=== PATIENT | male | born 1980 | race Caucasian/White ===

== ENCOUNTER 2016-09-07 18:10 | Emergency (ER) | payer MEDICAID ==
[~2016-09-07] VITALS: Ht 180.3 cm; Wt 108.9 kg
[2016-09-07] MEDS ORDERED: IBU800 MG PO (18:37)
== END 2016-09-07 18:43 | disposition home or self-care (01) ==
LOC: ED 18:10
DX: S93.402A Sprain of unspecified ligament of left ankle, initial encounter (principal); F17.200 Nicotine dependence, unspecified, uncomplicated; Z90.49 Acquired absence of other specified parts of digestive tract; X50.9XXA Other and unspecified overexertion or strenuous movements or postures, initial encounter; Y93.89 Activity, other specified; Y92.9 Unspecified place or not applicable; Y99.9 Unspecified external cause status

== ENCOUNTER 2017-01-05 19:57 | Inpatient (IN) | payer OTHER ==
[~2017-01-05] VITALS: Ht 177.8 cm; Wt 108.5 kg
--- NOTE | ~2017-01-05 | PR ---
[place], [place] PROGRESS NOTE NAME: BERNA CORONA [facility] #: [id number] UNIT #: [id number] ROOM: [facility] DOCTOR: DAMIEN HARRISON MD,PAU BIRTHDATE: [birth year] DOS: 01/09/2017 SUBJECTIVE: The patient remains on the mechanical ventilator. He has a bronchoscopy performed yesterday with BAL specimen was obtained. The patient has been noted without any symptoms of acute hemodynamic instability at the present time. The patient required very large amount of sedation for the comfort, since noted agitated, getting off the bed with use of the Diprivan maximum dose of 50 mcg/kg/min and also started getting Versed 5 mg q. hour. However, the patient was given actual Versed every 30 minutes at least 8 doses prior to making any changes to 5 mg every 1 hour. Even then, the patient was still noted with agitated at times. We have started on the Haldol 5 mg q. hour resulting in good sedation at this time. The patient has not been noted any acute hemodynamic instability. There were no signs of tachycardia or hypotension. Tachycardia, which had been noted previously improved. Progressive improvement in oxygenation was noted as well. He has not been noted with any difficulty with the feeding, which has been continued with NG tube started yesterday. OBJECTIVE: VITAL SIGNS: The patient remains afebrile, respiratory rate between 20-22, heart rate 60-69 blood pressure 129/76 143/89. Intake for the patient is 3.860 mL and output 2300 mL. The pulse oxygen saturation noted on 60% oxygen as 96% saturation at the bedside this morning of assessment. HEAD AND NECK: The patient remained intubated. NECK: Supple. Head was atraumatic. CARDIOVASCULAR: S1, S2 is audible. LUNGS: Noted with [id number] decreased breath sounds. There were no wheezing or crackles. ABDOMEN: Soft, nontender, bowel sounds present. EXTREMITIES: The patient was noted without any edema, clubbing or cyanosis. LABORATORY DATA: CMP this morning, glucose 137, BUN 16, creatinine was normal. Albumin 2.9. Remaining labs for this patient was noted essentially normal. Prealbumin was pending. Arterial blood gas of pH of 7.40, pCO2 of 45, pO2 145, 60% oxygen assist control mode, tidal volume of 500 cc, PEEP of 15. Another arterial blood gas repeated later on to confirm the pO2 shows pO2 of 266, pH 7.41, pCO2 of 42.7. The differential was available shows a wbcs of total of 1230 with a predominance cells was noted at 60%, which is neutrophils. The lymphocytes were noted at 7%, eosinophils 1% macrophages 27%, ____ of 5%. Chest x-ray that was done this morning shows significant reduction and improvement in the aeration of the lung. HIV attached was noted nonreactive, which has been tested for generation testing. The Gram stain of the bronchial washing was pending at this time. Preliminary culture was noted as no bacterial growth. Fungal stain was also noted pending. The pneumocystis testing was pending, but most likely will be less likely because negative HIV status. IMPRESSION: 1. The patient who has been currently noted with acute bilateral pulmonary infiltration, currently would be considered strongly for the diagnosis of acute pneumonia with etiology, currently not determined. Fluid overload would be also [place], [place] PROGRESS NOTE NAME: BERNA CORONA UNIT #: [id number] ROOM: [facility] DOCTOR: DAMIEN HARRISON MD,PAU BIRTHDATE: [birth year] considered with some cardiac component making actually worse as well. 2. ARDS spectrum was also noted on the chest x-ray yesterday as well. 3. Mild hypoalbuminemia. 4. Mild anemia as well. 5. Acute pneumonia with acute interstitial pneumonitis, exact etiology cannot be determined possibility of viral illness superimposed fluid overload would be considered. Other etiologies, acute hypersensitivity, pneumonitis remains in consideration as well, but appeared to be less likely because of the current acute neutrophil in the BAL specimen. 6. Fluid overload was also considered. 7. Acute severe hypoxic respiratory failure with acute respiratory distress syndrome. PLAN OF TREATMENT: Oxygen supplementation has been decreased at this time, 40% oxygen close monitoring the pulse oxygen saturation, repeat arterial blood gas in the next 4-5 hours to reassess the oxygenation. After that gradual reduction of the PT will be started. Continue with the reduction of the sedation with IV Versed use and continue the Diprivan and Haldol p.r.n. Monitor respiratory status closely. Completely discontinue any further IV fluids administration. The patient was ordered for 60 mg of Lasix intravenously to achieve a negative fluid balance. The patient was noted positive fluid balance of 1.559 liters yesterday. The antibiotic de-escalation will be done based on the final culture results of the bronchial washings. Other supportive therapy, plan and management and care. Monitor all the culture results of the patient, which was sent. Other lab testing. Continue to maximize the nutrition support. Ventilator bundle management. DVT prophylaxis. Total time for the pulmonary critical care evaluation management was 39 minutes. PAU QUEZADA MD CM:PNTRANS [id number] PAU HARRISON MD 01/09/17 1409 interface
--- NOTE | ~2017-01-05 | PR ---
[place], [place] PROGRESS NOTE NAME: BERNA CORONA [facility] #: [id number] UNIT #: [id number] ROOM: [place] [address] DOCTOR: DAMIEN HARRISON MD,PAU BIRTHDATE: [birth year] DOS: 01/10/2017 SUBJECTIVE: The patient has been continued on the mechanical ventilator, required ____ amount of sedation. Adjustment of sedation has been done for the patient as needed. The oxygen supplementation has been decreased for this patient gradually. The patient's PEEP was also decreased gradually. As the PEEP was decreased ____ this morning from 10 to 8, the patient was noted with oxygen desaturation. The PEEP was increased to 10 cm water again. His oxygen supplementation at this time was continued at 45% of oxygen. Low-grade fever was noted, otherwise the patient remains afebrile. Feeding was well tolerated by the patient. OBJECTIVE: VITAL SIGNS: For the patient, which has been recorded showed the temperature noted 99.9 degrees Fahrenheit, normal temperature, respiratory rate 18-20, heart rate 65-92, blood pressure 142/85-110/65. Pulse oxygen saturation was noted as 98%. HEENT: Showed no new change. NECK: Supple. The patient remains intubated. CARDIOVASCULAR: S1, S2 audible. LUNGS: The patient was noted without any crackles. Breaths are noted mildly decreased bilaterally. ABDOMEN: Soft, nontender. LABORATORY DATA: The culture of the BAL for the patient noted no bacterial growth. Arterial blood gas this morning, pH of 7.39, pCO2 of 53, pO2 of 55, 40% oxygen, PEEP of 8, tidal volume of 500 mL. Chest x-ray this morning does not show any new acute changes as compared to previous chest x-ray of yesterday. Vancomycin trough level yesterday noted 17.9. The BMP noted normal BUN and creatinine. CBC: WBC count 11,000, hemoglobin 13.2, hematocrit 39.1, platelet count was noted as normal. IMPRESSION: 1. Acute interstitial pneumonitis with severe acute hypoxic respiratory failure, still requiring mechanical ventilation with high PEEP, but decreased from 15 to 10 gradually in the last 24 hours. 2. BAL specimen noted no bacterial growth at the present time, but the differential of the BAL was suggestive of acute infection etiology, which has been treated. HIV tested and noted negative. Superimposed acute noninfectious etiology remains in consideration, currently treated with corticosteroids as well. 3. The patient with a high dose of requirement for sedation still needed. 4. Mild azotemia related to corticosteroids with elevation of BUN 24. 5. Mild hypertriglyceridemia related to the use of the Diprivan as the triglyceride levels were noted as 203. 6. Mild protein-calorie malnutrition status as well. PLAN OF TREATMENT: Discontinuation of the antibiotic with de-escalation has been ordered. The patient will be getting only Rocephin 2 gram IV daily. Vancomycin, Zithromax were discontinued. The Solu-Medrol dose has been changed [place], [place] PROGRESS NOTE NAME: BERNA CORONA UNIT #: [id number] ROOM: [place] [address] DOCTOR: DAMIEN HARRISON MD,PAU BIRTHDATE: [birth year] 60 mg q.8 hours to 40 mg b.i.d. The patient was started on IV Ativan by the primary care attending 1 mg an hour that will be continued at this time. The PEEP has been changed from 8-10 again resulting in improvement in the oxygen saturation. Repeat arterial blood gases in the morning. Another dose of Lasix 40 mg will be given today as well. Supportive care. Keep the patient to the negative balance. Still noted positive fluid balance as well. Additional treatment changes to be done based on the progression of the illness. PAU QUEZADA MD CM:PNTRANS [id number] PAU HARRISON MD 01/11/17 0031 interface
--- NOTE | ~2017-01-05 | PR ---
[place], [place] PROGRESS NOTE NAME: BERNA CORONA [facility] #: [id number] UNIT #: [id number] ROOM: [place] [address] DOCTOR: DAMIEN HARRISON MD,PAU BIRTHDATE: [birth year] DOS: 01/11/2017 SUBJECTIVE: The patient has been noted with some difficulty with endotracheal tube. The nurses and the respiratory therapist reported the patient cough has broken, inability to keep the pressure in the endotracheal tube, and the endotracheal tube has been changed by the anesthesia this morning without difficulty. The chest x-ray which was done subsequently, two of those, the patient still described the tip of the endotracheal tube could not be identified in any of those x-rays. As assessed the patient this morning for the patient, he has been still getting tidal volume as ordered for this patient. The oxygen saturation noted normal; however, the patient was suspected with air leak around the tracheostomy intermittently. He has been noted without any hemodynamic instability. He was noted with a rectal temperature elevation as low grade; otherwise, normal temperature was identified. OBJECTIVE: VITAL SIGNS: The temperature of the patient is normal orally and rectal 100.2 degrees Fahrenheit, respiratory rate of 18-20, heart rate of 82-100, blood pressure 138/72-107/75. Intake for the patient is 2400 mL and output 2800 mL. The pulse oxygen saturation 45% oxygen with 96% saturation recorded. HEENT: Examination shows no new change. NECK: Supple. CARDIOVASCULAR: S1, S2 audible. LUNGS: Noted moderate decreased breath sounds without any crackles. ABDOMEN: Soft, nontender, bowel sounds present. EXTREMITIES: Shows no edema. LABORATORY DATA: The patient's arterial blood gas today, pH of 7.44, pCO2 53.8, pO2 of 103. Another arterial blood gas repeated later shows pH of 7.42, pCO2 of 52, pO2 of 81 and 45% of oxygen. Blood culture from the showed no bacterial growth. Chest x-ray of the patient from the PACS images, both of them were reviewed with the patient, shows NG tube were noted in the stomach. Small hazy infiltration noted in the lungs. The tip of the endotracheal tube could not be seen. The CBC today was noted, WBC count normal, hemoglobin 13.4, hematocrit 40.1, platelet count for the patient was noted as normal. The pneumocystis stain for the patient was noted as negative. Acid fast bacillus of the BAL specimen was noted negative as well. IMPRESSION: The patient with most likely incompletely inserted endotracheal tube was noted at this time, which has been fixed personally for the patient with bedside bronchoscopy. The endotracheal tube were noted about 8-9 cm above the latrice level, barely entering the upper part of the trachea. Endotracheal tube was adjusted at 4 cm above the latrice level. Endotracheal tube was secured. PLAN OF TREATMENT: Continuation of the bronchodilator for the patient at this time. No further chest x-ray will be needed since the endotracheal tube confirmation has been done visually with the direct visualization with the bronchoscope. Reduce the PEEP to 8 cm water. Continue current oxygen supplementation. Continue current dose of corticosteroids and antibiotics as [place], [place] PROGRESS NOTE NAME: BERNA CORONA UNIT #: [id number] ROOM: [place] [address] DOCTOR: PAU ÁLVAREZ MD BIRTHDATE: [birth year] previously. Usual care, other supportive therapy, plan of management care to keep the patient towards a negative fluid balance. Additional labs for the patient will be ordered this morning as well. Sedation to be continued at this time with reduction of sedation to be started in the morning in preparation for possibility of readiness to get the assessment for liberation from mechanical ventilator. Assessment and management has been discussed with the patient's fiance in detail as well. Total time pulmonary critical care evaluation and management 45 minutes. PAU QUEZADA MD CM:PNTRANS [id number] PAU HARRISON MD 01/12/17 0054 interface
--- NOTE | ~2017-01-05 | PR ---
[place], [place] PROGRESS NOTE NAME: BERNA CORONA [facility] #: [id number] UNIT #: [id number] ROOM: [place] [address] DOCTOR: DAMIEN HARRISON MD,PAU BIRTHDATE: [birth year] DOS: 01/13/2017 SUBJECTIVE: He has been noted on mechanical ventilator, intubated. The Ativan taper for the patient has been gradually decreased and completely stopped for this patient in the last 24 hours. Currently, the patient getting intravenous Diprivan 40 mcg/kg/minute. The IV Haldol for the patient was also noted available. The patient has been currently effectively sedated with the current combination of medications. He has been noted mild tachycardia. The rectal temperature of the patient was noted at 102 degrees Fahrenheit by the oral temperature noted as completely normal. He has not been noted any distress at this time. The feeding has been tolerated from the orogastric tube. OBJECTIVE: VITAL SIGNS: Temperature 102 degrees Fahrenheit, normal temperature, respiratory rate of 21-22, heart rate 107-116, blood pressure 146/92-137/194. The pulse oxygen saturation on 50% oxygen 94% saturation. HEENT: Examination shows head was atraumatic. Eyes nonicterus. NECK: Supple. CARDIOVASCULAR: S1, S2 is audible. LUNGS: The patient was noted without any wheezing or crackles at the present time. ABDOMEN: Noted soft. Mild obesity. EXTREMITIES: Noted mild edema. LABORATORY DATA: The patient's CMP this morning, BUN 41, creatinine normal, glucose 118, CO2 of 36. CBC of the patient of 01/13/2017, WBC count 14,000, remaining CBC completely normal. Arterial blood gas pH of 7.42, pCO2 55.4. pO2 125, 50% oxygen with PEEP of 7.0, assist control, volume control, mechanical ventilation. Chest x-ray this morning noted. Endotracheal tube were noted well positioned without any evidence of acute pulmonary infiltration or other abnormalities. NG tube was noted in place. IMPRESSION: 1. The patient has been noted with current acute respiratory failure secondary to acute viral pneumonia for this patient, parainfluenza infection. Isolation. Adenovirus was also noted from the nasopharyngeal secretions. 2. Interstitial edema for the patient was also noted to be improving at the present time. 3. Chronic mild obesity. 4. Azotemia secondary to corticosteroid use and the diuretics as well. 5. Metabolic combination from the steroids and the diuretics as well. PLAN OF MANAGEMENT: Sedation has been completely turned off for this patient at the present time. Monitor respiratory status closely. Once the patient noted to be awake and alert. He will be started on CPAP of 5, pressure support of 10, mechanical ventilation at that time. Monitoring to be continued for 2 hours for the patient with close monitoring of his vital signs and the respiratory status, if tolerated. Arterial blood gas will be done for the patient to assess the arterial blood gas, the patient after that. Liberate from patient's mechanical ventilation for this patient based on the assessment later with arterial blood [place], [place] PROGRESS NOTE NAME: BERNA CORONA UNIT #: [id number] ROOM: [place] [address] DOCTOR: PAU ÁLVAREZ MD BIRTHDATE: [birth year] gas and clinical assessment. In the meantime, continue the other palliative care for the patient and supportive care therapy, plan of management, and usual treatment and other therapies. The assessment and management has been discussed with the patient's fiance and other family members at the bedside. The assessment and management was discussed the primary care attending of this patient as well. Pulmonary critical care evaluation and management for the patient today was 35 minutes. PAU QUEZADA MD CM:PNTRANS [id number] PAU HARRISON MD 01/14/17 0052 interface
--- NOTE | ~2017-01-05 | PR ---
[place], [place] PROGRESS NOTE NAME: BERNA CORONA [facility] #: [id number] UNIT #: [id number] ROOM: [place] [address] DOCTOR: DAMIEN HARRISON MD,PAU BIRTHDATE: [birth year] DOS: 01/14/2017 PULMONARY FOLLOWUP SUBJECTIVE: The patient was seen today and was noted with self extubation yesterday as sedation will decrease and the patient was noted excessive cough. The endotracheal tube was dislodged. After that, the patient was noted onetime projectile vomiting without any signs of aspiration. He has been noted with significant agitated behavior and findings of delirium as well. The delirium has been treated with use of the Haldol with several doses of Haldol administered yesterday, it has resulted in reduction and improvement on the delirium; however, the complete resolution was still not noted. The patient has not been given any benzodiazepine, especially the Ativan that may have partly contributed to the development of the delirium. He was continued on antiviral therapy with a Tamiflu as well. He has been kept relatively n.p.o. because of change in mental status to prevent any aspiration. He has not been noted further GI problems at the present time. OBJECTIVE: VITAL SIGNS: The temperature noted as normal. The respiratory rate recorded at 15-29, heart rate of 105 with mild sinus tachycardia, blood pressure 135/85-133/79. Intake 1200, output 1150 mL. Pulse oxygen saturation with oxygen supplementation that has been used by the patient was noted as 95-98% saturation with the nasal cannula and Venturi mask. HEENT: Currently, the patient has been extubated. The orogastric tube has been removed. NECK: Supple. CARDIOVASCULAR: S1, S2 audible. LUNGS: The patient was noted with moderate reduction. There was no wheezing or crackles. ABDOMEN: Soft, nontender. EXTREMITIES: Shows no edema. LABORATORY DATA: The patient's CMP today, BUN 31, creatinine was normal, glucose was normal. Potassium 3.0. CBC this morning, WBC count 14.6, hemoglobin and hematocrit normal with relatively normal differentials. Arterial blood gas that was done yesterday ____ self-extubated himself at 50% oxygen, pH of 7.49, pCO2 of 46, pO2 of 70-50% Venturi mask. IMPRESSION: 1. The patient has been currently noted with acute delirium in Intensive Care Unit, multifactorial, resolving and improving gradually. 2. The patient with acute hypoxic respiratory failure, resolving. 3. Acute viral infection parainfluenza infection and adenovirus as well with interstitial pneumonia as well. 4. The patient with mild azotemia and hyperkalemia related to diuretics and other etiology. PLAN OF TREATMENT: Continuation of the Haldol for the patient. The patient was given some clear liquids this morning, which has been tolerated and they will be [place], [place] PROGRESS NOTE NAME: BERNA CORONA UNIT #: [id number] ROOM: [place] [address] DOCTOR: DAMIEN HARRISON MD,PAU BIRTHDATE: [birth year] continued. Continue the Tamiflu as well as ordered. Other supportive therapy, plan of management as well. Starting the patient on clear liquid diet once the patient would be noted much more awake and then transition to his normal diet. Other supportive plan of management and care plan. Other additional treatment changes to be made based on the progression of the illness. PAU QUEZADA MD CM:JOSEFA [id number] PAU HARRISON MD 01/14/17 1255 interface
--- NOTE | ~2017-01-05 | PR ---
[place], [place] PROGRESS NOTE [facility] [id number] UNIT #: [id number] ROOM: [place] [address] DOCTOR: MARSHALL GUNDERSON DO BIRTHDATE: [birth year] DOS: 01/11/2017 PROCEDURE: Endotracheal intubation. PROCEDURE IN DETAIL: This is a 36-year-old male currently admitted to the hospitalist service. He has been intubated. The nurses noted a ____ cough in the endotracheal tube today and requested assistance in re-intubating the patient. Rapid sequence intubation was performed using succinylcholine and propofol. A size 8 endotracheal tube was inserted in the trachea with direct visualization of the vocal cords. There were good breath sounds bilaterally. A chest x-ray has been ordered for tube confirmation. No complications during the procedure. MARSHALL GUNDERSON DO CM:JOSEFA [id number] MARSHALL GUNDERSON DO 01/11/17 0937 interface
--- NOTE | ~2017-01-05 | PR ---
[place], [place] PROGRESS NOTE NAME: BERNA CORONA [facility] #: [id number] UNIT #: [id number] ROOM: [facility] DOCTOR: DAMIEN HARRISON MD,PAU BIRTHDATE: [birth year] DOS: 01/08/2017 PULMONARY CRITICAL CARE EVALUATION AND MANAGEMENT SUBJECTIVE: The patient was seen and examined. He remains in the Intensive Care Unit. Plan for bronchoscopy done today. He remains on 100% oxygen supplementation with non-rebreather mask and intermittent use of the BiPAP. The patient's oxygen saturation recorded 88%. The patient is on 100% on non-rebreather mask. The bronchoscopy specimen for this patient was planned to be done today. The patient has been intubated successfully by the Anesthesia Department prior to the procedure completion. He has not been noted any symptoms of coughing or any acute hemodynamic instability for this patient except intermittent sinus tachycardia was noted with high heart rate of 114 beats per minute. Respiratory, the patient was still noted with tachypnea as well. OBJECTIVE: VITAL SIGNS: For the patient which has been recorded shows, temperature was recorded as normal, respiratory rate 26-32, heart rate of 97-114, blood pressure 144/89-127/81. Pulse oxygen saturation of the patient was noted with 80% BiPAP of 93%. Currently on the mechanical ventilation. The patient was started on assist control, volume control mechanical ventilation. The patient's saturation was noted as 98% saturation on 100% oxygen. The vital signs for the patient, which has been rather an intake and output for the patient in the last 24 hours. The intake for the patient was recorded as 3350 mL over 2850 mL. Positive for vent 500 mL. HEENT: The patient is currently intubated orally. NECK: Supple. Head was atraumatic. CARDIOVASCULAR: S1, S2 audible. LUNGS: Diffuse reduction in breath sounds with questionable crackles, no wheezing. ABDOMEN: Soft, flat, nontender, bowel sounds present. EXTREMITIES: Noted without any edema, clubbing or cyanosis. LABORATORY DATA: BMP of the patient done this morning shows sodium 138, remaining electrolytes were normal. Vancomycin trough level 19.5, which is therapeutic. There was no CBC done today. PT/PTT, which was done yesterday for the patient was noted normal. Platelet function assay was noted normal as well. Urine culture, no bacterial growth. No new chest x-ray was done today or any arterial blood gases. IMPRESSION: The patient who has been currently noted with acute ARDS with the patient bilateral pulmonary infiltration with varying differentials remain in consideration. With current adequate diuresis less likely the cause of this patient infiltration will be considered congestive heart failure; however, other alternative diagnosis. The patient continued to maintain concentration for different interstitial pneumonitis. PLAN OF TREATMENT: Proceed with the BAL specimen. Continue broad spectrum intravenous antibiotic including the additional coverage for the patient as in [place], [place] PROGRESS NOTE NAME: BERNA CORONA UNIT #: [id number] ROOM: [facility] DOCTOR: DAMIEN HARRISON MD,PAU BIRTHDATE: [birth year] progress. Supportive plan of management, therapy, and care. Ventilator bundle management. The patient has been initiated. Continue DVT prophylaxis. Sedation with IV Diprivan and use of the Versed as needed. Other supportive plan of therapy, care, and management. Usual treatment, all other supportive care and therapies. Additional treatment to be made changes rather for the patient based on progression of the illness. Assessment and management has been discussed with the patient's fiancee and other family members today as well. Total time for pulmonary critical care evaluation and management was 38 minutes. PAU QUEZADA MD CM:PNTRANS [id number] PAU HARRISON MD 01/09/17 0018 interface
--- NOTE | ~2017-01-05 | EKG ---
[place], [place] ELECTROCARDIOGRAM REPORT NAME: BERNA CORONA UNIT #: [id number] ROOM: [facility] DOCTOR: DAMIEN HARRISON MD,PAU BIRTHDATE: [birth year] DOS: 01/07/2017 ELECTROCARDIOGRAM REPORT FINDINGS: The rhythm was noted with sinus rhythm with mild sinus tachycardia with a heart rate of 102 beats per minute. The electrocardiogram for the patient shows the criteria met for LVH. There were no changes of acute ischemia. Prolongation of the QTc interval was also noted. PAU QUEZADA MD CM:EKGRPT:ELECTROCARDIOGRAM REPORT [id number] PAU HARRISON MD
--- NOTE | ~2017-01-05 | CON ---
[place], [place] REPORT OF CONSULTATION NAME: BERNA CORONA [facility] #: [id number] UNIT #: [id number] ROOM: [facility] DOCTOR: PAU ÁLVAREZ MD BIRTHDATE: [birth year] DOS: 01/07/2017 CONSULTATION REQUESTED BY: Hospitalist services for the assessment of bilateral pulmonary infiltration with acute severe hypoxemic respiratory failure. HISTORY OF PRESENT ILLNESS: This is a 36-year-old white male who has been noted acutely ill for the past 2-3 weeks. He had been seen by the primary care physician as an outpatient, was diagnosed with symptoms of bronchitis and treated with antibiotic without any response. The patient reported symptoms of having a progressive increased shortness of breath where the coughing continued without any sputum expectoration as well. He was denying any symptoms of chest pain. Denies any symptoms of hemoptysis. The patient has a chest x-ray which was done in the Emergency on admission of 01/05/2017 shows bilateral pulmonary infiltration. The followup chest x-ray suggestive were noted significant worsening. He had a CT scan of the chest done as well that shows evidence of progressive bilateral pulmonary infiltration. Currently, the patient has been noted on the BiPAP with a setting of 12/8 with 80% oxygen. The oxygen saturation at the bedside was noted as 92%. His respiratory rate was noted 38-40. The patient was given intravenous fluids as the patient was admitted to the hospital because of elevation of lactic acids on 01/05/2017. He was given one dose of IV Lasix last night with about 2300 mL of urinary output was recorded after that. REVIEW OF SYSTEMS: CONSTITUTIONAL SYMPTOM: He does complain of flu-like symptoms at the time of getting acutely ill. He denies symptoms of fever or chills. Complaining of fatigue and malaise. EYES: Denies any burning, redness or tenderness or discharge or dryness. EARS, NOSE, THROAT SYMPTOMS: Denies sore throat, hoarseness, otalgia, postnasal drainage or epistaxis. CARDIOVASCULAR: Denies anginal pain, edema or pain of the lower extremities. The patient does report some edema and swelling in the past as per patient's fiancee. GASTROINTESTINAL: Denies dysphagia, nausea, vomiting, diarrhea, abdominal pain, hematemesis, melena, hematochezia, dysphagia, or aspiration. Denies any abnormal weight loss history. GENITOURINARY: Denies dysuria, suprapubic pain, hematuria. MUSCULOSKELETAL: Denies acute joint pain, redness, or tenderness. SKIN: No lesions or rashes. CENTRAL NERVOUS SYSTEM: No dizziness, headache, diplopia, syncopal episodes. Remaining systems were reviewed with the patient, they were noted all negative. PAST MEDICAL HISTORY: Reported as: 1. History of essential hypertension. 2. Gastroesophageal reflux. 3. History of bronchial asthma. 4. Varicose veins of the lower extremities. 5. Obesity. PAST SURGICAL HISTORY: [place], [place] REPORT OF CONSULTATION NAME: BERNA CORONA UNIT #: [id number] ROOM: [facility] DOCTOR: DAMIEN HARRISON MD,PAU BIRTHDATE: [birth year] 1. Varicose vein surgery of the right lower extremity. 2. Cholecystectomy. SOCIAL HISTORY: The patient is currently . He has no children. He lives with a girlfriend. The patient has been working for 4 years in a [employer] with significant exposure to the [email or web address] as a job. Denies any recent outside travel or contact any person with the infection. Denies any exposure to chemical mold or anything in the home settings. FAMILY HISTORY: Both parents at the age of 5050 years old from complication of pneumonia and diabetes. HOME MEDICATIONS: Noted as use of Norvasc, Tessalon Perles, cetirizine, doxycycline, ibuprofen and Zantac. DRUG ALLERGIES: No known drug allergies. PHYSICAL EXAMINATION: GENERAL: This is a 36-year-old male who has been currently noted to be awake and alert with mild tachypnea on the BiPAP. VITAL SIGNS: The patient's height was recorded by the nursing staff on admission, height of 5 feet 10 inches, weight of 239 pounds, BMI of 34.0. VITAL SIGNS: Recorded as a normal temperature since admission only 99.6 degree Fahrenheit noted orally one time on 01/05/2017, otherwise the patient remains afebrile, respiratory rate range between 15-26, heart rate 81-114 with mild sinus tachycardia, and blood pressure 125/80-132/72. The pulse oxygen saturation noted as 91-92% saturation of 80% oxygen. Pulse oxygen saturation previously noted on 01/05/2017 of 97% saturation of oxygen. HEENT: Shows head was atraumatic. Eyes nonicterus. NECK: Supple. The neck was obese. CARDIOVASCULAR: S1, S2 audible. No added sounds. LUNGS: Noted with general reduction in the breath sounds without any wheezing, occasional faint crackles noted in the mid portion of the lungs. ABDOMEN: Soft, obese, nontender. Bowel sounds present. EXTREMITIES: Does not show any evidence of edema, clubbing or cyanosis. CENTRAL NERVOUS SYSTEM: Cranial nerves 2-12 intact. MUSCULOSKELETAL: No deformities. SKIN: No lesions or rashes. LABORATORY DATA: CBC that was done on 01/05/2017, WBC count 20.2, 82% segmented neutrophils, remaining CBC normal. BMP noted as normal BUN and creatinine. Urine drug toxicology was noted negative. Lactic acid 2.3 on admission, ____ are noted as normal at 0.9. Troponin of 3 sets on 01/06/2017 were normal. CBC on 01/06/2017, WBC count 16.7, hemoglobin 13.6, hematocrit 38.1, platelet count was normal. Ultrasound of the soft tissue, head and neck was reported as normal. Arterial blood gas pH of 7.46, pCO2 of 28, pO2 of 44 that was done yesterday. CMP was noted as glucose 143, BUN and creatinine was normal. Potassium 3.4, chloride 108. CBC on 01/06/2017 that was yesterday, WBC count was elevated to 26.4, hemoglobin 13, hematocrit 38.3, platelet count normal segmented neutrophils noted 91%. Another arterial blood gas yesterday pH of [place], [place] REPORT OF CONSULTATION NAME: BERNA CORONA UNIT #: [id number] ROOM: [facility] DOCTOR: DAMIEN HARRISON MD,[facility] BIRTHDATE: [birth year] 7.43, pCO2 of 30, pO2 of 67 on 15 L nasal cannula oxygen supplementation. CMP that was done this morning, glucose 151, BUN and creatinine normal. The potassium noted as 3.4. Bilirubin 1.6. CBC this morning, WBC count 24.1, hemoglobin and hematocrit remains the same, platelet count was normal, 90% segmented neutrophils. Blood cultures rather 01/05/2017 was normal. Arterial blood gas on the BiPAP this morning, 80% oxygen, pH of 7.43, pCO2 of 36, pO2 of 64.4. RADIOLOGY DATA: That was personally reviewed from the back images. The first chest x-ray that was done on 01/05/2017 was noted with scattered bilateral pulmonary infiltration. The chest x-ray that was done on 01/06/2017 noted with bilateral pulmonary infiltration. CT scan of the chest that was done 01/06/2017 showed evidence of diffuse ground-glass opacities for the patient noted in the lungs sparring the subpleural area with bronchovascular distribution. The involvement was not noted uniformly all of the lungs. Patchy areas of normal was noted in between. The disease were noted significantly involving the upper lungs and middle lobe and part of the lower lungs were also involved. IMPRESSION: 1. The patient has been noted severe acute hypoxemic respiratory failure with progression with a differential diagnosis as noncardiogenic pulmonary or cardiogenic pulmonary edema, acute pneumonia with atypical manifestation and acute interstitial pneumonitis. 2. Differential diagnosis is acute pneumocystis pneumonitis for these nonspecific interstitial pneumonia would be considered as acute or chronic infection. The other infection to be considered is pneumocystis infection at the present time. 3. Acute hypersensitivity pneumonitis was also remains in consideration; however, the pulmonary infiltration had progressed after the hospitalization was not noted that severe on admission. 4. Cryptogenic organizing pneumonia would be also considered in the differential diagnosis. 5. Acute eosinophilic pneumonia, the patient also remains in consideration. PLAN OF MANAGEMENT: Order IgE level and ESR. The patient has been already getting Solu-Medrol starting today 60 mg q.8 hour that will be continued. Covered the pneumonia with vancomycin, intravenous Rocephin 2 g daily and Zithromax. Ordered for urine legionella antigen. Potential intubation and mechanical ventilation have been discussed in detail with the patient and his fiance that might occur, as the patient's respiratory status, most likely could deteriorate initially prior to the improvement despite use of the BiPAP. The bronchoscopy with BAL specimen will be obtained tomorrow morning. This will help to exclude certain diseases. Bronchodilators p.r.n. use as well to help mobilize secretions. The patient does expectorate sputum that could be sent for culture. HIV testing would be indicated as well. Other supportive plan of management, addition of treatment changes to be made based on the progression of the illness. Assessment and management has been discussed with Dr. Yuridia Wang as well. One more dose of Lasix has been ordered and echocardiogram needs to be done to exclude any cardiac etiology. [place], [place] REPORT OF CONSULTATION NAME: BERNA CORONA UNIT #: [id number] ROOM: [facility] DOCTOR: DAMIEN HARRISON MD,PAU BIRTHDATE: [birth year] Pulmonary critical care management for today took 40 minutes. PAU QUEZADA MD CM:CONSTR:REPORT OF CONSULTATION 1154 01/07/17 1412 interface
--- NOTE | ~2017-01-05 | PROC NOTE ---
[place], [place] PROCEDURE NOTE [facility]ONA [id number] UNIT #: [id number] ROOM: [facility] DOCTOR: DAMIEN HARRISON MD,PAU BIRTHDATE: [birth year] DOS: 01/08/2017 PROCEDURE: Bronchoscopy with a BAL specimen. PREOPERATIVE DIAGNOSIS: Bilateral interstitial pneumonitis. POSTOPERATIVE DIAGNOSIS: Bilateral interstitial pneumonitis. COMPLICATIONS: None. PROCEDURE DESCRIPTION: Informed consent obtained from the patient and family member. The patient already intubated and getting mechanical ventilation. The procedure was performed in the Surgery Department for the patient in negative pressure room. The video fiberoptic bronchoscope advanced to the endotracheal tube lower part of trachea. The vocal cord not seen since the patient is already intubated. There were no secretions present in the trachea, right upper, right middle, right lower, left upper, left lingular lower lobe bronchi were all examined and noted patent without significant secretions. Based on the current CT scan assessment, the specimen was obtained from the right upper lobe for this patient as well as in the right lower lobe for the patient effectively without any difficulty. Transient hypoxia was noted. The patient with BAL specimen, which was treated by the withdrawal of the scope and continued the oxygenation. The BAL specimen was sent for cell count with differential. The pneumocystis stain was also ordered. The routine cultures including fungal cultures as well as the acid-fast smear and culture was ordered as well. The patient will be continued on the current mechanical ventilation setting and noted the pulse oxygen saturation as 98% for this patient. Post-completion of the procedure postoperative findings were discussed with the patient's family members. PAU QUEZADA MD CM:PROCNOTE:PROCEDURE NOTE [id number] PAU HARRISON MD
--- NOTE | ~2017-01-05 | PR ---
[place], [place] PROGRESS NOTE NAME: BERNA CORONA [facility] #: [id number] UNIT #: [id number] ROOM: [place] [address] DOCTOR: DAMIEN HARRISON MD,PAU BIRTHDATE: [birth year] DOS: 01/12/2017 SUBJECTIVE: The patient remains on the mechanical ventilator at this time, intubated, with adjustment of the endotracheal tube that was done ____ endoscopy. He was noted with tidal volume without any air leak. He has not been noted any changes in the oxygen supplementation. The oxygen saturation recorded 95% saturation with current mechanical ventilation. The sedation has been given in the form of Ativan 4 mg an hour and the patient was also getting IV Diprivan. He has been noted comfortable. OBJECTIVE: VITAL SIGNS: Temperature remains normal, respiratory rate 18-12, heart rate 81-82, blood pressure 117/70-124/76. Pulse oxygen saturation noted on 45% oxygen is 93% saturation. HEENT: The patient is orally intubated. Orogastric tube in place. NECK: Supple. CARDIOVASCULAR: S1, S2 audible. LUNGS: Ccje-et-lbvxcmru decreased breath sounds without any wheezing or crackles at the present time. ABDOMEN: Soft and nontender. Bowel sounds present. EXTREMITIES: Show no edema. LABORATORY DATA: CBC of the patient was noted as normal WBC count, hemoglobin, and hematocrit. BMP this morning, BUN 40, creatinine was normal, and glucose 134. The LFTs were normal. CO2 of 38. Arterial blood gas on 45% oxygen, pH of 7.44, pCO2 of 55, pO2 of 83.2. The respiratory viral culture noted positive adenovirus as well as chronic mycoplasma infection. Elevated IgG. Parainfluenza 1, 2 and 3 viral antibodies were all noted positive with PCR analysis. The chest x-ray shows a small area of subsegmental atelectasis, right lower lung. The endotracheal tube was noted in appropriate position. NG tube was noted in proper position without any acute visible gross infiltration. CASANDRA was noted negative. IMPRESSION: 1. The patient who has been currently admitted to the hospital noted with acute viral pneumonia with parainfluenza pneumonia as well as virus which was noted positive as well. 2. The patient with acute severe hypoxic respiratory failure as a result of interstitial pneumonitis with viral infection. 3. Small area of subsegmental atelectasis of the lower lung. 4. Difficulty of sedation. PLAN OF TREATMENT: The patient has been started on the antibiotic treatment yesterday. The patient with use of Tamiflu 75 mg b.i.d. that will be continued. Discontinuation of the IV Rocephin because the pneumonia was noted interstitial pneumonia related to the current viral infection rather than any bacterial infection. Continue the current sedation. Decrease the PEEP to 7 cm of water with close observation as well. Assess the patient tomorrow for possibility of assessment of liberation of mechanical ventilation readiness. Continue the Haldol as necessary for the sedation purposes. Usual care. All other [place], [place] PROGRESS NOTE NAME: BERNA CORONA UNIT #: [id number] ROOM: [place] [address] DOCTOR: DAMIEN HARRISON MD,PAU BIRTHDATE: [birth year] supportive plan of management and therapies and care. Continue ventilator bundle management as well. Nutrition support. Total time for pulmonary critical care evaluation and management was 35 minutes. PAU QUEZADA MD CM:PNNABILA [id number] PAU HARRISON MD 01/13/17 0016 interface
[~2017-01-05 19:57] MED LIST: IBU800 MG PO
[2017-01-05 20:21] VITALS: BP 132/75
[2017-01-05] MEDS ORDERED: GOOD NEIGHBOR150 MG PO (20:22)
[2017-01-05] MEDS ORDERED: DOXYCYCLINE MO100 MG PO (20:22)
[2017-01-05] MEDS ORDERED: ALLERGY RELIEF10 M2 PO (20:23)
[2017-01-05] MEDS ORDERED: TESSALON PERLE100 MG PO (20:23)
[2017-01-05 21:14] VITALS: BP 113/69
[2017-01-05 21:56] LABS: BILIRUBIN 2+ (NEGATIVE); BLOOD TRACE-LYSED (NEGATIVE); CLARITY SL CLOUDY (CLEAR); COLOR YELLOW (YELLOW); GLUCOSE NEGATIVE (NEGATIVE); KETONE 1+ (NEGATIVE); LEUKO ESTERASE NEGATIVE (NEGATIVE); NITRITE POSITIVE (NEGATIVE); PH 5.5 (5.0-9.0); SPECIFIC GRAVITY >= 1.030 (1.005-1.030)
[2017-01-05 21:57] LABS: HEMATOCRIT 43.4 % (42.0-52.0); HEMOGLOBIN 15.2 g/dl (14.0-18.0); MEAN CELL VOLUME 86.8 fl (80.0-94.0); MEAN CORPUSCULAR HGB 30.4 pg (27.0-31.0); MEAN PLATELET VOLUME 10.3 fl (9.6-12.3); PLATELET COUNT AUTOMATED 255 10*3/uL (130-400); RED CELL DISTRI WIDTH 13.1 % (0-14.5); WHITE BLOOD COUNT 20.2 10*3/uL (4.8-10.8)
[2017-01-05 22:06] LABS: URINE AMPHETAMINES < 1000 (1000ng/ml); URINE BARBITURATES < 200 (200ng/ml); URINE BENZODIAZEPINES < 200 (200ng/ml); URINE CANNABINOIDS (THC) < 50 (50ng/ml); URINE COCAINE < 300 (300ng/ml); URINE METHADONE < 300 (300ng/ml); URINE OPIATES < 300 (300ng/ml)
[2017-01-05 22:08] LABS: BACTERIA 1+; MUCOUS 3+
[2017-01-05 22:13] LABS: URINE PHENCYCLIDINE < 25 (25ng/ml)
[2017-01-05 22:15] LABS: PLATELET SUFFICIENCY NORMAL (NORMAL); TOTAL CELLS COUNTED 100 #CELLS
[2017-01-05 22:23] LABS: BUN 17 mg/dl (7-24); CHLORIDE 101 mmol/L (98-107); CREATININE 1.15 mg/dL (0.70-1.30); POTASSIUM 3.8 mmol/L (3.5-5.1); SODIUM 136 mmol/L (136-145)
[2017-01-05 22:24] VITALS: BP 124/72
[2017-01-05 23:05] VITALS: BP 141/86
--- NOTE | 2017-01-05 23:05 | NUR ---
A 36, admitted to 5E, under the services of HAKAN Hernandez DO with a diagnosis of PNEUMONIA. Chief complaint is COLD SYMPTOMS. Patient arrived via bed from ER. Monitor applied. Initial assessment completed. Vital signs taken and recorded. HAKAN HERNANDEZ DO notified of admission to the unit. Orders received. See assessment for past medical history, medications and allergies. Patient and/or family oriented to unit. visitation policy reviewed. Clothing/patient valuable form completed. HERBERTH MANUEL
[2017-01-05 23:11] VITALS: BP 141/86
[2017-01-05] MEDS ORDERED: NORVASC2.5 MG PO (23:12)
--- NOTE | 2017-01-05 23:12 | NUR ---
MED REC UP TO DATE WITH PT LIST FROM HOME
--- NOTE | 2017-01-05 23:58 | NUR ---
SPOKE TO DR.ELIZABETH VALLADARES AT THIS TIME. AWARE THAT PATIENT'S MED REC IS UP TO DATE PER PT RECALL. ALSO NOTIFIED THAT RAPID FLU TAKEN IN ER. NO NEED FOR SECOND RAPID FLU SWAB.
[2017-01-06] VITALS: BP 124/73
[2017-01-06 05:25] LABS: BUN 13 mg/dl (7-24); CHLORIDE 108 mmol/L (98-107); CHOLESTEROL 125 mg/dL (<200); CREATININE 0.93 mg/dL (0.70-1.30); POTASSIUM 3.9 mmol/L (3.5-5.1); SODIUM 140 mmol/L (136-145); TRIGLYCERIDES 57 mg/dl (<150); VLDL CHOLESTEROL 11 mg/dL (6-40)
[2017-01-06 05:33] LABS: FREE T4 1.26 ng/dl (0.76-1.46); HDL CHOLESTEROL 49 mg/dl (40-60); LDL CHOLESTEROL 65 mg/dL (9-159); THYROID STIM HORMONE (HS) 0.208 uIU/ml (0.358-4.75)
[2017-01-06 05:35] LABS: HEMATOCRIT 38.1 % (42.0-52.0); HEMOGLOBIN 13.6 g/dl (14.0-18.0); MEAN CORPUSCULAR HGB 31.4 pg (27.0-31.0); MEAN CORPUSCULAR HGB CONC 35.7 g/dl (33.0-37.0); MEAN PLATELET VOLUME 10.7 fl (9.6-12.3); PLATELET COUNT AUTOMATED 255 10*3/uL (130-400); RED BLOOD COUNT 4.33 10*6/uL (4.50-5.90); RED CELL DISTRI WIDTH 13.2 % (0-14.5); WHITE BLOOD COUNT 16.7 10*3/uL (4.8-10.8)
[2017-01-06 06:23] LABS: PLATELET SUFFICIENCY NORMAL (NORMAL); TOTAL CELLS COUNTED 100 #CELLS
[2017-01-06 06:28] LABS: VITAMIN D, 25-HYDROXY 16.5 ng/mL (30-100)
--- NOTE | 2017-01-06 06:28 | NUR ---
SPOKE TO DR.ALEX GUNDERSON AT THIS TIME REGARDING PATIENT'S REQUEST FOR A COUGH SUPPRESSANT. PER , PATIENT TO HAVE SCHEDULED DOSE OF MUCINEX. NO ORDERS RECEIVED AT THIS TIME.
[2017-01-06 08:00] VITALS: BP 132/72
--- NOTE | 2017-01-06 08:00 | NUR ---
Bus Monitor in to talk to patient. Patient states lives at HOME with HIS GIRLFRIEND. There are [address] OF steps in the home. Physician: ROHAN Pharmacy: [facility] Home health services: NONE Patient's level of ADLs: INDEPENDENT Patient has working utilities: YES DME: NONE Follow-up physician's appointment after d/c: WILL BE MADE PRIOR TO DC Does patient want to access PORTAL?: Discharge plan HOME. KAMRAN MORELAND
--- NOTE | 2017-01-06 09:00 | NUR ---
Patient resting quietly with no c/o discomfort. Respirations easy and regular. Vital signs stable. No overt distress. MARIANGEL HELLER R
[2017-01-06 12:00] VITALS: BP 127/63
[2017-01-06 16:00] VITALS: BP 134/79
[2017-01-06 20:00] VITALS: BP 134/79
--- NOTE | 2017-01-06 20:16 | NUR ---
RESPIRATORT RELAYED THAT PT. PULSE OX IN THE 70'S ON ROOM AIR, WHILE BREATHING TX. RUNNING AT 6LPM PT. PULSE OX WAS 86, AFTER TREATMENT RESPIRATORY PLACED PT. ON 6LPM NC AND PT. PULSE OX WAS IN THE LOW 80'S SO PT. WAS PLACED ON A NONREBREATING MASK, PULSE OX WAS 92 DURING THIS TIME. SPOKE WITH DR. VALLADARES IN REGARDS TO SITUATION, SEE NEW ORDERS.
[2017-01-06 20:29] LABS: HEMATOCRIT 38.3 % (42.0-52.0); HEMOGLOBIN 13.1 g/dl (14.0-18.0); MEAN CELL VOLUME 87.4 fl (80.0-94.0); MEAN CORPUSCULAR HGB 29.9 pg (27.0-31.0); MEAN CORPUSCULAR HGB CONC 34.2 g/dl (33.0-37.0); MEAN PLATELET VOLUME 10.3 fl (9.6-12.3); PLATELET COUNT AUTOMATED 285 10*3/uL (130-400); RED BLOOD COUNT 4.38 10*6/uL (4.50-5.90); RED CELL DISTRI WIDTH 13.5 % (0-14.5); WHITE BLOOD COUNT 26.4 10*3/uL (4.8-10.8)
[2017-01-06 20:41] LABS: ABG BASE EXCESS -1.8 mmol/L (-2.0-2.0); ABG HCO3 20.3 mmol/l (22-26); ARTERIAL BLOOD GAS PCO2 28.4 mmHg (35-45); ARTERIAL BLOOD GAS PH 7.468 (7.35-7.45)
[2017-01-06 20:44] LABS: ALBUMIN 3.2 gm/dl (3.1-4.5); ALKALINE PHOSPHATASE 68 U/L (45-117); BUN 8 mg/dl (7-24); CHLORIDE 108 mmol/L (98-107); POTASSIUM 3.4 mmol/L (3.5-5.1); SGOT/AST 25 IU/L (3-35); SGPT/ALT 23 U/L (12-78); SODIUM 140 mmol/L (136-145); TOTAL PROTEIN 7.2 gm/dL (6.4-8.2)
[2017-01-06 20:47] LABS: PLATELET SUFFICIENCY NORMAL (NORMAL); TOTAL CELLS COUNTED 100 #CELLS
[2017-01-06 21:00] VITALS: BP 144/89
[2017-01-06 21:44] LABS: ABG BASE EXCESS -2.9 mmol/L (-2.0-2.0); ABG O2 SATURATION 94.1 % (95-97); ARTERIAL BLOOD GAS PCO2 30.5 mmHg (35-45); ARTERIAL BLOOD GAS PH 7.431 (7.35-7.45); ARTERIAL BLOOD GAS PO2 67.5 mmHg (80-90)
--- NOTE | 2017-01-06 22:18 | NUR ---
2100 - PT. TRANSFERRED FROM WITH INCREASING SOB, PULSE OX 92% ON 100% NONREBREATHER. DR. Mandi VALLADARES IN ICCU DURING TRANSFER, ORDERS RECEIVED AND RESULTS ACKNOWLEDGED BY DR. Mandi VALLADARES. DR. QUEZADA NOTIFIED OF CONSULT AT 2220 AND FURTHER ORDERS RECEIVED. PT. DOWN TO CT AND BACK AT 2219. CONDITION GUARDED. WILL CONTINUE TO MONITOR CLOSELY. ROD MORRIS RN
[2017-01-07] VITALS: BP 108/68
--- NOTE | 2017-01-07 00:30 | NUR ---
DOCTOR BLAINE TO THE FLOOR PATIENT RESP ARE 50'S OXYGEN IS 88-91% PATIENT HAS EXCESSIVE COUGHING.DOCTOR ORDERED ROBITUSSIN WHICH WAS GIVEN.
--- NOTE | 2017-01-07 01:07 | NUR ---
PATIENT PLACED ON BIPAP PER DOCTORS ORDER SETTING 01/28 80%. PATIENT HEART RATE IS NOW CURRENTLY 117 PULSE OX 96% ON BIPAP RESPS ARE 16 PATIENT GIVEN ATIVAN PER DOCTORS ORDERS PATIENT RESTING COMFORTABLY AT THIS TIME.
[2017-01-07 02:33] LABS: HEMATOCRIT 37.7 % (42.0-52.0); HEMOGLOBIN 13.3 g/dl (14.0-18.0); MEAN CELL VOLUME 87.3 fl (80.0-94.0); MEAN CORPUSCULAR HGB 30.8 pg (27.0-31.0); MEAN CORPUSCULAR HGB CONC 35.3 g/dl (33.0-37.0); MEAN PLATELET VOLUME 10.3 fl (9.6-12.3); PLATELET COUNT AUTOMATED 276 10*3/uL (130-400); RED BLOOD COUNT 4.32 10*6/uL (4.50-5.90); RED CELL DISTRI WIDTH 13.6 % (0-14.5); WHITE BLOOD COUNT 24.1 10*3/uL (4.8-10.8)
[2017-01-07 02:38] LABS: ALBUMIN 3.2 gm/dl (3.1-4.5); ALKALINE PHOSPHATASE 72 U/L (45-117); BUN 8 mg/dl (7-24); CHLORIDE 105 mmol/L (98-107); CREATININE 0.83 mg/dL (0.70-1.30); PHOSPHOROUS 2.6 mg/dL (2.5-4.9); POTASSIUM 3.4 mmol/L (3.5-5.1); SGOT/AST 22 IU/L (3-35); SGPT/ALT 21 U/L (12-78); SODIUM 141 mmol/L (136-145); TOTAL PROTEIN 7.3 gm/dL (6.4-8.2)
[2017-01-07 03:05] LABS: ATYPICAL LYMPHS 1 % (0-0); MICROCYTOSIS SLIGHT; PLATELET SUFFICIENCY NORMAL (NORMAL); TOTAL CELLS COUNTED 100 #CELLS
[2017-01-07 04:00] VITALS: BP 121/78
[2017-01-07 08:00] VITALS: BP 125/80
--- NOTE | 2017-01-07 08:52 | NUR ---
Awake and alert , requests B-Pap OFF removed for 10 mins. for po k+ supplement . De-Sat to 70's on 5L NC w/ Bi-Pap off. Dr. Orozco in. Dr. Cook in. RT replaced to Bi-Pap at 0838. States feels better, Harsh cough . productive of pale yellow mucous.
[2017-01-07 09:06] LABS: ABG HCO3 23.6 mmol/l (22-26); ABG O2 SATURATION 93.6 % (95-97); ARTERIAL BLOOD GAS PH 7.43 (7.35-7.45); ARTERIAL BLOOD GAS PO2 64.2 mmHg (80-90)
[2017-01-07 12:00] VITALS: BP 122/87
--- NOTE | 2017-01-07 12:30 | NUR ---
Remains on high flow o2 at 15L for lunch. tolerating fair. s.o at bedside.
[2017-01-07 13:14] LABS: ACT PARTIAL THROMBO TIME 25.7 SECONDS (20.8-31.5)
--- NOTE | 2017-01-07 14:07 | NUR ---
rESTING QUIETLY W/ BI-PAP ON.
[2017-01-07 16:00] VITALS: BP 118/78
--- NOTE | 2017-01-07 17:21 | NUR ---
C/O pain and buring from brown cath. cath dc'd.
--- NOTE | 2017-01-07 18:02 | NUR ---
Smith cath dc'd . up to bsc for mucoid BM. Then returned. Bi-Pap to off high flow o2 at 15 l.
[2017-01-07 20:00] VITALS: BP 127/80
[2017-01-08] VITALS (13 sets, daily range): BP systolic 112–143; BP diastolic 65–89
--- NOTE | 2017-01-08 06:10 | NUR ---
PATIENT COUGHING UP THICK WHITE SPUTUM THIS MORNING PATIENT UP TO CAHIR WITH HIGH AIR FLOW NASAL CANULA ON GETTING WASHED UP. PATIENT HAS BEEN NPO SINCE MIDNIGHT PATIENT GOING FOR BRONCH THIS AM. PATIENT UNABLE TO MAINTAIN PULSE OX ABOVE 88% ON CANULA. PATIENT WASHED AND IS NOW BACK IN BED AND BIPAP WAS PLACED BACK ON PATIENT IS CURRENTLY 92%
[2017-01-08 07:07] LABS: IMMUNOGLOBULIN IgE 002170 14 IU/mL (0-100)
[2017-01-08 07:41] LABS: BUN 15 mg/dl (7-24); CHLORIDE 104 mmol/L (98-107); CREATININE 0.75 mg/dL (0.70-1.30); SODIUM 140 mmol/L (136-145)
[2017-01-08 08:13] LABS: HIV 1+2 AB + HIV1 P24 AG Non Reactive (Non Reactive)
--- NOTE | 2017-01-08 08:54 | NUR ---
PATIENT NOT AVAILABLE FOR ECHO. OFF THE FLOOR FOR OTHER TESTING.
--- NOTE | 2017-01-08 11:22 | NUR ---
PT HAS RETURNED FROM OR INTUBATED, 7.5 ETT 23 CM AT LIP, #16 THOMPSON PLACED, HEAD GEAR APPLIED, PT IS WILD, DIPROVAN STARTED AND QUICKLY MAXED OUT, UNABLE TO CONTROL PT, THRASHING, PULLING AT RESTRAINTS, THROWING LEGS OUT OF BED, PT IS VERY STRONG AND DOES NOT RESPOND TO VERBAL EXPLANATIONS, 2 STAFF MEMBERS ARE ATTEMPTING TO KEEP PT FROM PULLING OUT ETT, THIS RN IS UNABLE TO LEAVE BEDSIDE, THE SUPERVISOR CONTACT AND SERVICE CLERKS WAS ASKED TO CALL DR BOYD AND TELL HIM THAT THIS NURSE REQUEST HIM TO COME TO THE PTS ROOM, TO SEE HOW WILD THIS PT IS, NURSING PHARMACY RETAIL SUPPORT SPECIALIST ALSO CALLED THE HOSPITALIST TO ALSO REQUEST THE DOCTOR TO COME TO THE ROOM, VERSED ONE TIME ORDERED AND GIVEN, THIS HAS KEPT PT CALM FOR ONLY ABOUT 10-15 MINUTES POST VERSED, DR QUEZADA CALLED FOR ORDERS AND UPDATED ON PTS AGITATION
[2017-01-08 11:59] LABS: ABG BASE EXCESS -3.6 mmol/L (-2.0-2.0); ABG HCO3 25.6 mmol/l (22-26); ABG O2 SATURATION 98.3 % (95-97); ARTERIAL BLOOD GAS PCO2 67.2 mmHg (35-45); ARTERIAL BLOOD GAS PH 7.205 (7.35-7.45)
[2017-01-08 12:15] LABS: BODY FLUID WBC 1230 /uL
--- NOTE | 2017-01-08 12:22 | NUR ---
[facility] CALLED TO DR QUEZADA, CHANGES MADE TO VERSED PT REMAINS AGITATED AND 2 STAFF MEMBERS ARE NEEDED JUST TO KEEP PT INTUBATED, VERSED GIVEN Q30 MINUTES
--- NOTE | 2017-01-08 12:36 | NUR ---
PO MEDS HELD PT IS INTUBATED LOVENOX HELD POST BRONCH
[2017-01-08 12:58] LABS: BASO % 0.1 % (0.0-1.0); EOS % 0.1 % (1.0-4.0); HEMATOCRIT 37.6 % (42.0-52.0); HEMOGLOBIN 12.5 g/dl (14.0-18.0); LYMPH # 0.7 10*3/uL (1.3-4.4); LYMPH % 5.3 % (27.0-41.0); MEAN CORPUSCULAR HGB 30.4 pg (27.0-31.0); MEAN CORPUSCULAR HGB CONC 33.2 g/dl (33.0-37.0); MEAN PLATELET VOLUME 10.4 fl (9.6-12.3); MONO # 0.9 10*3/uL (0.1-1.0); MONO % 6.6 % (3.0-9.0); NEUT # 11.4 10*3/uL (2.3-7.9); NEUT % 87.4 % (47.0-73.0); PLATELET COUNT AUTOMATED 274 10*3/uL (130-400); RED BLOOD COUNT 4.11 10*6/uL (4.50-5.90); RED CELL DISTRI WIDTH 13.7 % (0-14.5); WHITE BLOOD COUNT 13.1 10*3/uL (4.8-10.8)
[2017-01-08 13:06] LABS: MYCOPLASMA PNEUMONIAE IGG 529 U/mL (0-99); MYCOPLASMA PNEUMONIAE IGG 661 U/mL (0-99); MYCOPLASMA PNEUMONIAE IGM <770 U/mL (0-769)
[2017-01-08 13:09] LABS: MEAN CELL VOLUME 91.5 fl (80.0-94.0)
--- NOTE | 2017-01-08 13:41 | NUR ---
VERSED BEING GIVEN Q30 MINUTES FOR SEDATION PT STILL SITTING UP AND PULLING AT LINES/THOMPSON
--- NOTE | 2017-01-08 14:38 | NUR ---
VERSED NEEDED AGAIN FOR SEDATION
--- NOTE | 2017-01-08 15:38 | NUR ---
OGT PLACED PER POLICY, CXR ORDERED
[2017-01-08 16:12] LABS: LEGIONELLA URINARY ANTIGEN Negative (Negative)
[2017-01-08 16:15] LABS: ABG BASE EXCESS -0.2 mmol/L (-2.0-2.0); ABG HCO3 25.3 mmol/l (22-26); ABG O2 SATURATION 98.1 % (95-97); ARTERIAL BLOOD GAS PCO2 45.1 mmHg (35-45); ARTERIAL BLOOD GAS PH 7.362 (7.35-7.45)
--- NOTE | 2017-01-08 16:33 | NUR ---
SELAM CALLED TO DR QUEZADA
--- NOTE | 2017-01-08 17:58 | NUR ---
Q1H VERSED IS EFFECTIVE WITH DIPROVAN AT 50MCG
--- NOTE | 2017-01-08 20:19 | NUR ---
1904 RESTLESS. TRYING TO GET OOB. ROUTINE VERSED 5MG IV GIVEN ORDERED. DIPRIVAN GTT CONT AT 50MICS 1949 RESTING IN BED WITH HOB ELEVATED. SIDE RAILS UP X'S 2. REPOSITIONED. OGT INTACT.PLACEMENT CONFIRMED WITH AIR BOLUS/AUSCULTATION. ET SECURE TO VENT. PULSE OX 100% ON 70% FIO2.SUCTIONED ORALLY AND VIA ET.SEE INTERVENTION SCREEN. IV FLUIDS CONT. DIPRIVAN CONT. WRIST RESTRAINTS INTACT BILATERALLY. CIRCULATION ADEQUATE. THOMPSON PATENT AND DRAINING CLOUDY YELLOW URINE. TEDS INTACT. 1999 ROUTINE VERSED GIVEN.
--- NOTE | 2017-01-08 22:14 | NUR ---
2100 ROUTINE VERSED GIVEN IV. 2200 ROUTINE IV VERSED GIVEN. PT VERY AGITATED. TRYING TO SIT UP. SUCTIONED ORALLY AND VIA ET FOR LARGE AMOUNT SPUTUM. REASSURANCE GIVEN.
--- NOTE | 2017-01-08 22:30 | NUR ---
PT REMAINS VERY AGITATED. MOVING ABOUT CONSTANTLY IN THE BED. WILL NOT CALM DOWN. DR. QUEZADA CALLED - NEW ORDERS RECEIVED.
--- NOTE | 2017-01-08 23:41 | NUR ---
2ND DOSE OF HALDOL GIVEN PER ORDER. INCONTINENT OF LARGE AMOUNT LIQUID, BROWN STOOL.COMPLETE BED BATH GIVEN AND LINENS CHANGED.
[2017-01-09] VITALS (12 sets, daily range): BP systolic 104–130; BP diastolic 64–85
--- NOTE | 2017-01-09 00:27 | NUR ---
0000 ROUTINE VERSED IV GIVEN. LESS RESTLESSNESS NOTED NOW. ET SECURE TO VENT. PULSE OX 100%. DIPRIVAN CONT. THOMPSON PATENT. WRIST RESTRAINTS REMAIN INTACT.
[2017-01-09 02:07] LABS: ADENOVIRUS Negative (Negative); INFLUENZA A Negative (Negative); INFLUENZA B Negative (Negative); METAPNEUMOVIRUS Negative (Negative); PARAINFLUENZA 1 Negative (Negative); PARAINFLUENZA 2 Negative (Negative); PARAINFLUENZA 3 Negative (Negative); RHINOVIRUS Negative (Negative); RSV A Negative (Negative); RSV B Negative (Negative)
--- NOTE | 2017-01-09 03:42 | NUR ---
HELD 0300 DOSE OF VERSED DUE TO PT BEING ADEQUATELY SEDATED. AT 0335 PT BEING MOVING ABOUT IN THE BED. VERSED 5MG IV GIVEN. WILL CONT TO MONITOR.
--- NOTE | 2017-01-09 04:14 | NUR ---
VERSED GIVEN AGAIN TO RESUME Q1H SCHEDULE. PT APPEARS TO BE SLEEPING AGAIN.
[2017-01-09 05:32] LABS: ALBUMIN 2.9 gm/dl (3.1-4.5); ALKALINE PHOSPHATASE 62 U/L (45-117); BUN 16 mg/dl (7-24); CHLORIDE 104 mmol/L (98-107); CREATININE 0.66 mg/dL (0.70-1.30); POTASSIUM 3.7 mmol/L (3.5-5.1); SGOT/AST 9 IU/L (3-35); SGPT/ALT 25 U/L (12-78); SODIUM 140 mmol/L (136-145); TOTAL PROTEIN 6.6 gm/dL (6.4-8.2)
[2017-01-09 05:52] LABS: ABG BASE EXCESS 3.2 mmol/L (-2.0-2.0); ABG O2 SATURATION 99.4 % (95-97); ARTERIAL BLOOD GAS PCO2 45.3 mmHg (35-45); ARTERIAL BLOOD GAS PH 7.407 (7.35-7.45)
[2017-01-09 06:08] LABS: BASO % 0.1 % (0.0-1.0); HEMATOCRIT 36.8 % (42.0-52.0); LYMPH # 1.2 10*3/uL (1.3-4.4); LYMPH % 12.2 % (27.0-41.0); MEAN CELL VOLUME 90.9 fl (80.0-94.0); MEAN CORPUSCULAR HGB 29.6 pg (27.0-31.0); MEAN CORPUSCULAR HGB CONC 32.6 g/dl (33.0-37.0); MEAN PLATELET VOLUME 10.7 fl (9.6-12.3); MONO # 0.7 10*3/uL (0.1-1.0); MONO % 6.4 % (3.0-9.0); NEUT # 8.2 10*3/uL (2.3-7.9); NEUT % 80.7 % (47.0-73.0); PLATELET COUNT AUTOMATED 289 10*3/uL (130-400); RED BLOOD COUNT 4.05 10*6/uL (4.50-5.90); RED CELL DISTRI WIDTH 13.7 % (0-14.5); WHITE BLOOD COUNT 10.2 10*3/uL (4.8-10.8)
--- NOTE | 2017-01-09 06:30 | NUR ---
CONT TO RECEIVE IV VERSED Q1H. DIPRIVAN CONT AT 50MICS.DIURESED WELL FROM EARLIER IV LASIX. NO DISTRESS NOTED. CONDITION GUARDED.
[2017-01-09 09:57] LABS: ABG BASE EXCESS 2.4 mmol/L (-2.0-2.0); ABG HCO3 26.7 mmol/l (22-26); ABG O2 SATURATION 99.7 % (95-97); ARTERIAL BLOOD GAS PCO2 42.7 mmHg (35-45); ARTERIAL BLOOD GAS PH 7.414 (7.35-7.45)
[2017-01-09 10:19] LABS: BF LYMPHOCYTES 7 %; BF MACROPHAGES 27 %; BF MESOTHELIALS 5 %; BF NEUTROPHILS 60 %
[2017-01-09 13:04] LABS: PREALBUMIN 14 mg/dl (20-40)
--- NOTE | 2017-01-09 13:43 | NUR ---
REMAINS INTUBATED,TF'S AT 40 AND TOLERATING WELL,2 BMS TODAY,DIPROVAN REMAINS MAXED AT 50 MCG,VERSED Q2H AND PT STILL SITS STRAIGHT UP AT TIMES AND THRASHES WILDLY,HALDOL USED TWICE THIS AM TO MAINTAIN CALMNESS,IV FLUIDS STOPPED,LASIX GIVEN AND PT DIURESSED WELL, FIO2 DECRESED TO 40%,FAMILY UPDATED
[2017-01-09 15:32] LABS: ABG BASE EXCESS 4.3 mmol/L (-2.0-2.0); ABG HCO3 29.9 mmol/l (22-26); ARTERIAL BLOOD GAS PH 7.386 (7.35-7.45)
--- NOTE | 2017-01-09 16:00 | NUR ---
[facility] CALLED MIN QUEZADA,ORDERS RECIEVED,ALSOUPDATED ON PT NOT LASTING 2 HOURS BETWEEN DOSES OF VERSED WITH SITTING UPRIGHT AND THRASHING ABOUT,SEDATION CHANGES MADE
[2017-01-09 16:34] LABS: BUN 19 mg/dl (7-24); CHLORIDE 102 mmol/L (98-107); CREATININE 0.86 mg/dL (0.70-1.30); SODIUM 139 mmol/L (136-145)
--- NOTE | 2017-01-09 17:15 | NUR ---
HALDOL USED TODAY HAS BEEN INEFFECTIVE FOR AGITATION
--- NOTE | 2017-01-09 19:18 | NUR ---
24 HR chart check completed.
--- NOTE | 2017-01-09 20:07 | NUR ---
SCHEDULED VERSED GIVEN. IMMEDIATELY EFFECTIVE.
--- NOTE | 2017-01-09 21:00 | NUR ---
SCHEDULED VERSED GIVEN. IMMEDIATELY EFFECTIVE.
--- NOTE | 2017-01-09 22:01 | NUR ---
SCHEDULED VERSED GIVEN. IMMEDIATELY EFFECTIVE.
[2017-01-09 22:06] LABS: PARAINFLUENZA 3 CF 1:16 (Neg:<1:8)
--- NOTE | 2017-01-09 22:40 | NUR ---
PRN HALDOL GIVEN FOR AGITATION.
--- NOTE | 2017-01-09 23:02 | NUR ---
SCHEDULED VERSED GIVEN. IMMEDIATELY EFFECTIVE.
[2017-01-10] VITALS (13 sets, daily range): BP systolic 107–143; BP diastolic 61–87
--- NOTE | 2017-01-10 00:01 | NUR ---
VERSED GIVEN. IMMEDIATELY EFFECTIVE.
--- NOTE | 2017-01-10 01:05 | NUR ---
VERSED GIVEN. IMMEDIATELY EFFECTIVE.
--- NOTE | 2017-01-10 02:40 | NUR ---
VERSED GIVEN. IMMEDIATELY EFFECTIVE.
--- NOTE | 2017-01-10 03:56 | NUR ---
VERSED GIVEN. IMMEDIATELY EFFECTIVE.
[2017-01-10 04:48] LABS: BASO % 0.1 % (0.0-1.0); EOS % 0.2 % (1.0-4.0); HEMATOCRIT 39.1 % (42.0-52.0); HEMOGLOBIN 13.2 g/dl (14.0-18.0); LYMPH % 9.5 % (27.0-41.0); MEAN CELL VOLUME 92.2 fl (80.0-94.0); MEAN CORPUSCULAR HGB 31.1 pg (27.0-31.0); MEAN CORPUSCULAR HGB CONC 33.8 g/dl (33.0-37.0); MEAN PLATELET VOLUME 10.3 fl (9.6-12.3); MONO # 0.8 10*3/uL (0.1-1.0); MONO % 7.4 % (3.0-9.0); NEUT % 82.3 % (47.0-73.0); PLATELET COUNT AUTOMATED 302 10*3/uL (130-400); RED BLOOD COUNT 4.24 10*6/uL (4.50-5.90); RED CELL DISTRI WIDTH 13.4 % (0-14.5)
--- NOTE | 2017-01-10 05:09 | NUR ---
VERSED GIVEN. IMMEDIATELY EFFECTIVE.
[2017-01-10 05:17] LABS: ALBUMIN 2.9 gm/dl (3.1-4.5); BUN 26 mg/dl (7-24); CHLORIDE 105 mmol/L (98-107); POTASSIUM 4.1 mmol/L (3.5-5.1); SODIUM 144 mmol/L (136-145)
[2017-01-10 05:21] LABS: ALKALINE PHOSPHATASE 62 U/L (45-117); SGOT/AST 13 IU/L (3-35); SGPT/ALT 29 U/L (12-78); TOTAL PROTEIN 6.8 gm/dL (6.4-8.2); TRIGLYCERIDES 203 mg/dl (<150)
--- NOTE | 2017-01-10 05:40 | NUR ---
VERSED GIVEN. IMMEDIATELY EFFECTIVE.
--- NOTE | 2017-01-10 06:07 | NUR ---
PATIENT IS AGITATED. PRN HALDOL GIVEN ORDERED.
--- NOTE | 2017-01-10 06:26 | NUR ---
SCHEDULED VERSED GIVEN. VERSED/HALDOL IS EFFECTIVE AT THIS TIME.
--- NOTE | 2017-01-10 06:33 | NUR ---
PATIENT STARTED COUGHING AFTER HE WAS TURNED. DIAPHORETIC. TUBE FEED SUCTIONED FROM PATIENTS MOUTH. OG TUBE PLACEMENT CHECKED VIA AIR BOLUS. OG TUBE IS NOT IN THE STOMACH. OG TUBE ADVANCED. RECHECKED PLACEMENT WITH AIR BOLUS. + PLACEMENT VERIFIED. TUBE FEED IS ON HOLD. RADIOLOGY IS HERE FOR CXR. THEY SAID THEY WILL CHECK PLACEMENT OF OG. AWAITING CXR RESULT BEFORE RESTARTING TUBE FEED.
--- NOTE | 2017-01-10 07:43 | NUR ---
VERSED NEEDED PT IS SITTING UP IN BED, REACHING FOR TUBE PEEP TO 8, PT DESATING TO 92-93, WAS 97-98, DR QUEZADA UPDATED, [facility] BEING DONE NOW
[2017-01-10 08:05] LABS: ABG BASE EXCESS 6.2 mmol/L (-2.0-2.0); ABG HCO3 31.8 mmol/l (22-26); ABG O2 SATURATION 87.2 % (95-97); ARTERIAL BLOOD GAS PH 7.399 (7.35-7.45)
--- NOTE | 2017-01-10 08:36 | NUR ---
VERSED NEEDED, DR FARRELL AT BEDSIDE, IV BENDRYL GIVEN ALSO, THE COMBINATION WORKED WELL, IV STARTED IN RAC
--- NOTE | 2017-01-10 09:59 | NUR ---
PT IS NOW EFFECTIVELY SEDATED WITH DIPROVAN AT 50 ATIVAN DRIP AT 1 VERSED Q1 PRN
--- NOTE | 2017-01-10 11:17 | NUR ---
GIVEN VERSED AND EFFECTIVE.
--- NOTE | 2017-01-10 12:23 | NUR ---
MEDICATED WITH VERSED AND EFFECTIVE.
--- NOTE | 2017-01-10 13:10 | NUR ---
GIVEN VERSED AND EFFECTIVE.
--- NOTE | 2017-01-10 14:20 | NUR ---
MEDICATED WITH VERSED AND EFFECTIVE.
[2017-01-10 15:08] LABS: ACID FAST SMEAR Negative (.); ACID FAST SPEC PROCESSING Concentration (.)
--- NOTE | 2017-01-10 15:16 | NUR ---
MEDICATED FOR AGITATION WITH VERSED AND EFFECTIVE.
--- NOTE | 2017-01-10 16:25 | NUR ---
MEDICATED WITH VERSED AND EFFECTIVE.
--- NOTE | 2017-01-10 17:21 | NUR ---
MEDICATED WITH VERSED AND EFFECTIVE.
--- NOTE | 2017-01-10 18:16 | NUR ---
MEDICATED FOR AGITATION WITH VERSED AND IMMEDIATELY EFFECTIVE.
--- NOTE | 2017-01-10 20:56 | NUR ---
24 HR chart check completed.
[2017-01-11] VITALS (12 sets, daily range): BP systolic 107–138; BP diastolic 55–87
[2017-01-11 04:26] LABS: BASO % 0.1 % (0.0-1.0); HEMATOCRIT 40.1 % (42.0-52.0); HEMOGLOBIN 13.4 g/dl (14.0-18.0); LYMPH # 2.4 10*3/uL (1.3-4.4); MEAN CELL VOLUME 90.7 fl (80.0-94.0); MEAN CORPUSCULAR HGB 30.3 pg (27.0-31.0); MEAN CORPUSCULAR HGB CONC 33.4 g/dl (33.0-37.0); MEAN PLATELET VOLUME 10.1 fl (9.6-12.3); MONO # 1.2 10*3/uL (0.1-1.0); MONO % 13.1 % (3.0-9.0); NEUT # 5.8 10*3/uL (2.3-7.9); NEUT % 61.2 % (47.0-73.0); PLATELET COUNT AUTOMATED 313 10*3/uL (130-400); RED BLOOD COUNT 4.42 10*6/uL (4.50-5.90); RED CELL DISTRI WIDTH 13.2 % (0-14.5); WHITE BLOOD COUNT 9.4 10*3/uL (4.8-10.8)
[2017-01-11 04:44] LABS: ALBUMIN 3.1 gm/dl (3.1-4.5); ALKALINE PHOSPHATASE 52 U/L (45-117); BUN 33 mg/dl (7-24); CHLORIDE 101 mmol/L (98-107); CREATININE 0.82 mg/dL (0.70-1.30); POTASSIUM 3.9 mmol/L (3.5-5.1); SGOT/AST 10 IU/L (3-35); SGPT/ALT 28 U/L (12-78); SODIUM 143 mmol/L (136-145); TOTAL PROTEIN 6.7 gm/dL (6.4-8.2)
--- NOTE | 2017-01-11 07:22 | NUR ---
24 HR chart check completed.
[2017-01-11 07:33] LABS: ABG BASE EXCESS 10.8 mmol/L (-2.0-2.0); ABG HCO3 36.3 mmol/l (22-26); ABG O2 SATURATION 97.4 % (95-97); ARTERIAL BLOOD GAS PCO2 53.8 mmHg (35-45); ARTERIAL BLOOD GAS PH 7.448 (7.35-7.45)
--- NOTE | 2017-01-11 08:28 | NUR ---
PT WAS REINTUBATED AT 08:15 AM DUE TO CUFF BLOWN.
--- NOTE | 2017-01-11 09:00 | NUR ---
PT'S ENDOTUBE CUFF WOULD NOT STAY INFLATED. DR GUNDERSON REINTUBATED. PT TOLERATED WELL. XRAY CONFIRMED PLACEMENT.
[2017-01-11 09:29] LABS: ABG BASE EXCESS 7.8 mmol/L (-2.0-2.0); ABG HCO3 33.6 mmol/l (22-26); ABG O2 SATURATION 95.1 % (95-97); ARTERIAL BLOOD GAS PCO2 52.4 mmHg (35-45); ARTERIAL BLOOD GAS PH 7.423 (7.35-7.45)
--- NOTE | 2017-01-11 12:41 | NUR ---
DR QUEZADA CHECKED PLACEMENT OF ENDOTUBE WITH BRONCOSCOPE. TUBE WAS ADVANCED 3 CM. PT TOLERATED WELL.
--- NOTE | 2017-01-11 20:23 | NUR ---
PT. RESTING IN BED, ADEQUATELY SEDATED ON DIPROVAN AND ATIVAN DRIPS. DIPROVAN REMAINS AT 50MICS VIA YOHANA, SITE ASYMPT. ATIVAN DRIP AT 4MG VIA RAN, SITE ALSO ASYMPT. HEP LOCKS IN RA AND LH ALSO ASYMPT. LUNGS HAVE RHONCHI BILAT, PULSE OX 95% ON 45% FIO2. ABDOMEN SOFT, NONDISTENDED AND NORMO. OGT HAS NUTREN INFUSING AT 60CC/HR, PLACEMENT CONFIRMED WITH AIR BOLUS AND 5CC'S RESIDUAL WAS NOTED. DEPENDENT EDEMA OF HANDS AND LEGS NOTED. 2+ BLE. PT. GIVEN ORAL MOUTH CARE AND SUCTIONED FOR MOD AMT OF YELLOW/WHITE MUCOUS. SOFT WRIST RESTRAINTS BILAT TO PREVENT ACCIDENTAL SELF-EXTUBATION. THOMPSON CATH DRAINING A CLEAR YELLOW URINE. CURRENTLY ASSISTING VENT, NO DISTRESS. ROD MORRIS RN
[2017-01-12] VITALS (12 sets, daily range): BP systolic 101–124; BP diastolic 55–76
[2017-01-12 04:55] LABS: BASO % 0.1 % (0.0-1.0); HEMOGLOBIN 14.2 g/dl (14.0-18.0); LYMPH # 2.1 10*3/uL (1.3-4.4); LYMPH % 22.7 % (27.0-41.0); MEAN CELL VOLUME 90.5 fl (80.0-94.0); MEAN CORPUSCULAR HGB 29.9 pg (27.0-31.0); MEAN PLATELET VOLUME 10.2 fl (9.6-12.3); MONO % 11.4 % (3.0-9.0); NEUT # 5.9 10*3/uL (2.3-7.9); NEUT % 64.5 % (47.0-73.0); PLATELET COUNT AUTOMATED 316 10*3/uL (130-400); RED BLOOD COUNT 4.75 10*6/uL (4.50-5.90); RED CELL DISTRI WIDTH 12.8 % (0-14.5); WHITE BLOOD COUNT 9.1 10*3/uL (4.8-10.8)
[2017-01-12 05:11] LABS: ALBUMIN 3.2 gm/dl (3.1-4.5); BUN 40 mg/dl (7-24); CHLORIDE 98 mmol/L (98-107); CREATININE 0.84 mg/dL (0.70-1.30); POTASSIUM 3.7 mmol/L (3.5-5.1); SGOT/AST 17 IU/L (3-35); SGPT/ALT 41 U/L (12-78); SODIUM 141 mmol/L (136-145); TOTAL PROTEIN 7.1 gm/dL (6.4-8.2)
[2017-01-12 05:12] LABS: ALKALINE PHOSPHATASE 56 U/L (45-117)
[2017-01-12 05:27] LABS: ABG BASE EXCESS 10.6 mmol/L (-2.0-2.0); ABG HCO3 36.7 mmol/l (22-26); ABG O2 SATURATION 96.1 % (95-97); ARTERIAL BLOOD GAS PCO2 55.1 mmHg (35-45); ARTERIAL BLOOD GAS PH 7.44 (7.35-7.45); ARTERIAL BLOOD GAS PO2 83.2 mmHg (80-90)
--- NOTE | 2017-01-12 07:34 | NUR ---
24 HR chart check completed.
--- NOTE | 2017-01-12 08:56 | NUR ---
PT RESTING WELL ON VENT. VITALS STABLE.
--- NOTE | 2017-01-12 20:23 | NUR ---
PT. RESTING COMFORTABLY. CHOKEY COUGH NOTED WITH ASSESSMENT, PT MORE AWAKE THIS EVENING. DIPROVAN DRIP CONTINUES AT 50MICS VIA YOHANA, SITE ASYMPT. HEP LOCKS IN RAN AND RA AND LH ASYMPT. LUNGS HAVE RHONCHI BILAT, PULSE OX 95% ON 45% FIO2. ABDOMEN SOFT, NONDISTENDED AND NORMO. OGT PLACEMENT CONFIRMED WITH AIR BOLUS AND NUTREN TF CONTINUES ORDERED, NO RESIDUAL NOTED. BILAT DEPENDENT EDEMA OF HANDS NOTED, 2+BLE. MARK HOSE ON BILAT. THOMPSON CATH DRAINING A CLEAR MARGE URINE. SOFT WRIST RESTRAINTS ON BILAT TO PREVENT ACCIDENTAL SELF-EXTUBATION. ROD MORRIS RN
[2017-01-13] VITALS (8 sets, daily range): BP systolic 124–146; BP diastolic 78–98
--- NOTE | 2017-01-13 01:06 | NUR ---
24 HR chart check completed.
[2017-01-13 05:50] LABS: HEMOGLOBIN 14.4 g/dl (14.0-18.0); MEAN CORPUSCULAR HGB 30.1 pg (27.0-31.0); MEAN CORPUSCULAR HGB CONC 33.5 g/dl (33.0-37.0); MEAN PLATELET VOLUME 10.5 fl (9.6-12.3); PLATELET COUNT AUTOMATED 324 10*3/uL (130-400); RED BLOOD COUNT 4.78 10*6/uL (4.50-5.90)
[2017-01-13 06:02] LABS: ALBUMIN 3.2 gm/dl (3.1-4.5); BUN 41 mg/dl (7-24); CHLORIDE 98 mmol/L (98-107); CREATININE 0.85 mg/dL (0.70-1.30); POTASSIUM 3.6 mmol/L (3.5-5.1); SGOT/AST 25 IU/L (3-35); SGPT/ALT 54 U/L (12-78); SODIUM 141 mmol/L (136-145); TOTAL PROTEIN 6.8 gm/dL (6.4-8.2)
[2017-01-13 06:03] LABS: ALKALINE PHOSPHATASE 58 U/L (45-117)
[2017-01-13 06:19] LABS: PLATELET SUFFICIENCY NORMAL (NORMAL); TOTAL CELLS COUNTED 100 #CELLS
[2017-01-13 07:48] LABS: ABG BASE EXCESS 9.3 mmol/L (-2.0-2.0); ABG HCO3 34.8 mmol/l (22-26); ARTERIAL BLOOD GAS PCO2 55.4 mmHg (35-45); ARTERIAL BLOOD GAS PH 7.424 (7.35-7.45)
--- NOTE | 2017-01-13 07:55 | NUR ---
24 HR chart check completed.
--- NOTE | 2017-01-13 08:13 | NUR ---
TEMP OF 102 RECTALLY THIS AM. MEDICATED WITH TYLENOL 650MG VIA OG.
--- NOTE | 2017-01-13 09:15 | NUR ---
SEDATION PLACED ON HOLD PER DR QUEZADA FOR POSSIBLE EXTUBATION.
--- NOTE | 2017-01-13 10:00 | NUR ---
PLACED ON CPAP OF 5 AND PS OF 10 R/T PT AWAKE AND FOLLOWING COMMANDS.
--- NOTE | 2017-01-13 10:51 | NUR ---
WHILE ADJUSTING ENDOTUBE AND TUBE TAMER PT HAD A VERY LG EMESIS THAT RESEMBLED CURDLED MILK. PT WAS SITTING STRAIGHT UP WHEN THIS HAPPENED AND A YANKAR WAS PLACED IN MOUTH TO AID IN PREVENTION OF ASPIRATION. DURING THIS EPISODE ENDOTUBE BECAME DISLODGED SO THE TUBE WAS REMOVED. PT WAS PLACED ON A 100% NONREBREATHER. SATS AT THIS TIME IS 97%. DR QUEZADA MADE AWARE OF EPISODE.
--- NOTE | 2017-01-13 13:11 | NUR ---
this morning during the changing of the tubetamer, the patient began to cough excessivly, which the led to the displacement of the ET tube. after tube removal, the patient was placed on a100% non rebreather with a spo2 of 99-100%. pt is being closely being monitored, and titration is being of oxygen device is being performed.
--- NOTE | 2017-01-13 13:13 | NUR ---
In to see patient, nurses with him at the time. Went out to lobby multiple family members available. Discussed LTACH with family and explained what LTACH is. Provided list of LTACH's, family stated [facility] in [place] is the closest for them. Contacted Gordo at [facility] who stated they have taken patients insurance [employer] in the past. Faxed referral. Will require precert. Gordo arrived to hospital to discuss with patient and family.
[2017-01-13 13:21] LABS: ABG BASE EXCESS 10.5 mmol/L (-2.0-2.0); ABG HCO3 34.9 mmol/l (22-26); ABG O2 SATURATION 93.8 % (95-97); ARTERIAL BLOOD GAS PCO2 46.4 mmHg (35-45); ARTERIAL BLOOD GAS PH 7.493 (7.35-7.45); ARTERIAL BLOOD GAS PO2 72.1 mmHg (80-90)
--- NOTE | 2017-01-13 13:25 | NUR ---
DR QUEZADA CALLED WITH [facility]. ALSO NOTIFIED OF THRASHING IN BED AND DELERIUM. KWADWO ORDERED.
--- NOTE | 2017-01-13 17:45 | NUR ---
SEVERAL DOSES OF IV HALDOL 5MG GIVEN EVERY HOUR SINCE ORDERED. VERY SMALL EFFECT HAS BEEN NOTICED WITH MEDICATING. PT STILLS CONTINUES TO THRASH IN BED AND GROWL VERY LOUDLY. PT HAS ALSO HAD SEVERAL EPISODES OF DIARRHEA AND STOOL HAS BEEN SENT FOR CDIF.
--- NOTE | 2017-01-13 19:46 | NUR ---
FAMILY AT BEDSIDE. HALDOL GIVEN AT 1925 FOR AGITATION/THRASHING ABOUT IN BED. HR LOW 110'S, PULSE OX MID 90'S.
--- NOTE | 2017-01-13 19:55 | NUR ---
HALDOL SOMEWHAT EFFECTIVE DESPITE FAMILY MEMBERS STIMULATING HIM.
--- NOTE | 2017-01-13 20:52 | NUR ---
PT WAS INCONTINENT OF LG AMT GREEN STOOL. COMPLETE BATH AND BED LINEN CHANGE DONE AND MEDICATED WITH HALDOL AT 2039 DURING BATH. MILDLY EFFECTIVE.
--- NOTE | 2017-01-13 23:37 | NUR ---
HOURLY HALDOL CONTINUES FOR RESTLESSNESS, AGITATION, DELERIUM. MILD EFFECTIVENESS NOTED.
[2017-01-14] VITALS: BP 134/86
--- NOTE | 2017-01-14 01:05 | NUR ---
FREQUENT JOSE ALFREDO CARE DONE FOR INCONTINENCE OF GREEN LIQUID STOOL. TARAL AT 0050. PT IS MORE VERBAL AND COMMUNICATIVE BUT NOT NECESSARILY COOPERATIVE.
[2017-01-14 04:00] VITALS: BP 133/79
--- NOTE | 2017-01-14 04:07 | NUR ---
PT APPEARS TO BE RESTING FAIRLY QUIETLY AT THIS TIME. CONTINUES TO FIGHT ME I ATTEMPT TO DO MOUTH CARE...HE BITES DOWN, CLOSES MOUTH, AND THRASHES HEAD SIDE TO SIDE, THEN SAYS "HEY NOW!" OVER AND OVER AGAIN.
--- NOTE | 2017-01-14 04:09 | NUR ---
PT ARGUING WITH RESPIRATORY THERAPIST SHE PLACES TREATMENT IN PLACE. HE SAYS "PLEASE, COME ON, I DON'T NEED THAT!"
--- NOTE | 2017-01-14 04:49 | NUR ---
TOLERATING DECREASE IN VENTURI MASK TO 40%.... PULSE OX 96-97%.
[2017-01-14 06:33] LABS: HEMATOCRIT 42.3 % (42.0-52.0); MEAN CELL VOLUME 89.4 fl (80.0-94.0); MEAN CORPUSCULAR HGB 29.6 pg (27.0-31.0); MEAN CORPUSCULAR HGB CONC 33.1 g/dl (33.0-37.0); MEAN PLATELET VOLUME 10.6 fl (9.6-12.3); PLATELET COUNT AUTOMATED 282 10*3/uL (130-400); RED BLOOD COUNT 4.73 10*6/uL (4.50-5.90); RED CELL DISTRI WIDTH 12.8 % (0-14.5); WHITE BLOOD COUNT 14.6 10*3/uL (4.8-10.8)
[2017-01-14 06:50] LABS: ALBUMIN 3.1 gm/dl (3.1-4.5); ALKALINE PHOSPHATASE 58 U/L (45-117); BUN 31 mg/dl (7-24); CHLORIDE 103 mmol/L (98-107); SGOT/AST 56 IU/L (3-35); SGPT/ALT 75 U/L (12-78); SODIUM 144 mmol/L (136-145); TOTAL PROTEIN 6.6 gm/dL (6.4-8.2)
--- NOTE | 2017-01-14 06:51 | NUR ---
PT'S FIANCE CALLS IN ..... UPDATED ON PT'S PROGRESS.
[2017-01-14 07:08] LABS: TOTAL CELLS COUNTED 100 #CELLS
[2017-01-14 07:09] LABS: PLATELET SUFFICIENCY NORMAL (NORMAL); TOXIC GRANULATION SLIGHT
[2017-01-14 08:00] VITALS: BP 135/85
--- NOTE | 2017-01-14 10:03 | NUR ---
Patient referred to Abhay in [place], [facility] on auth. Abhay has asked for DC summary to be faxed upon discharge to [phone] and a doc to doc review be called to Elvia at [phone] for information purposes only. They have also asked if radiology can send a disc with the patient for and diagnostics.
[2017-01-14 12:00] VITALS: BP 132/80
--- NOTE | 2017-01-14 12:43 | NUR ---
REMAINS VERY LETHARGIC AND WILL WAKE WITH VERBAL STIMULI SOFT RESTRAINTS REMOVED EARLIER HE IS MORE ALERT AND CALM.
[2017-01-14] MEDS ORDERED: PROTONIX40 M1 IV (14:24)
[2017-01-14] MEDS ORDERED: ENOXAPARIN40 MG/0.2 SC (14:24)
[2017-01-14] MEDS ORDERED: DUONEB 3 MG/3 ML3 M1 NEB (14:24)
[2017-01-14] MEDS ORDERED: SOLU-MEDRO40 MG/1 ML IV (14:24)
[2017-01-14] MEDS ORDERED: TAMIFLU 75MG CA75 MG PO (14:24)
[2017-01-14] MEDS ORDERED: Vitamin D PO (14:24)
--- NOTE | 2017-01-14 14:43 | NUR ---
[facility] AWARE OF TRANSFER TO [facility].
--- NOTE | 2017-01-14 15:10 | NUR ---
DR. QUEZADA AWARE OF TRANSFER TO [facility]. REPORT CALLED TO NURSE AT [facility] IN [place].
[2017-01-14 16:00] VITALS: BP 151/98
--- NOTE | 2017-01-14 16:16 | NUR ---
PT RESTING. FAMILY AT BEDSIDE. AWAITING TRANSFER TO [facility].
--- NOTE | 2017-01-14 17:50 | NUR ---
PT TO [facility] VIA [facility].
== END 2017-01-14 17:56 | DRG 853 ==
LOC: ED 19:57 → ICCU 22:03 → 5E 22:03 → EDHOLD 22:03 → 5E 22:11 → ICCU 01-06 20:40
PROVIDERS: Emergency Medicine Emergency Medical Services; Hospitalist; Internal Medicine; Internal Medicine Critical Care Medicine; ADMIT Internal Medicine
PROC: 5A09357 Assistance with Respiratory Ventilation, Less than 24 Consecutive Hours, Continuous Positive Airway Pressure (ICD-10-PCS; 2017-01-07)
PROC: 5A1955Z Respiratory Ventilation, Greater than 96 Consecutive Hours (ICD-10-PCS; principal; 2017-01-08)
PROC: 0B9F8ZX Drainage of Right Lower Lung Lobe, Via Natural or Artificial Opening Endoscopic, Diagnostic (ICD-10-PCS; 2017-01-08)
PROC: 0B9C8ZX Drainage of Right Upper Lung Lobe, Via Natural or Artificial Opening Endoscopic, Diagnostic (ICD-10-PCS; 2017-01-08)
PROC: 5A09357 Assistance with Respiratory Ventilation, Less than 24 Consecutive Hours, Continuous Positive Airway Pressure (ICD-10-PCS; 2017-01-08)
PROC: 0BH17EZ Insertion of Endotracheal Airway into Trachea, Via Natural or Artificial Opening (ICD-10-PCS; 2017-01-08)
PROC: 0BH17EZ Insertion of Endotracheal Airway into Trachea, Via Natural or Artificial Opening (ICD-10-PCS; 2017-01-11)
DX: A41.9 Sepsis, unspecified organism (principal); J96.01 Acute respiratory failure with hypoxia; J84.114 Acute interstitial pneumonitis; J12.2 Parainfluenza virus pneumonia; J45.901 Unspecified asthma with (acute) exacerbation; E44.1 Mild protein-calorie malnutrition; E87.5 Hyperkalemia; N39.0 Urinary tract infection, site not specified; F17.210 Nicotine dependence, cigarettes, uncomplicated; I10 Essential (primary) hypertension; K21.9 Gastro-esophageal reflux disease without esophagitis; E66.9 Obesity, unspecified; R59.0 Localized enlarged lymph nodes; R73.9 Hyperglycemia, unspecified; R65.20 Severe sepsis without septic shock; T50.2X5A Adverse effect of carbonic-anhydrase inhibitors, benzothiadiazides and other diuretics, initial encounter; T38.0X5A Adverse effect of glucocorticoids and synthetic analogues, initial encounter; E78.1 Pure hyperglyceridemia; D64.9 Anemia, unspecified; E87.6 Hypokalemia; Z71.6 Tobacco abuse counseling; Z68.34 Body mass index [BMI] 34.0-34.9, adult; Z79.899 Other long term (current) drug therapy; Y92.89 Other specified places as the place of occurrence of the external cause; Z90.49 Acquired absence of other specified parts of digestive tract; Z82.5 Family history of asthma and other chronic lower respiratory diseases; E87.70 Fluid overload, unspecified

== ENCOUNTER 2022-12-12 12:44 | Emergency (ER) | payer OTHER ==
[~2022-12-12] VITALS: Ht 175.2 cm; Wt 86.2 kg
[~2022-12-12 12:44] MED LIST changes: +ALLERGY RELIEF10 M2 PO; +DOXYCYCLINE MO100 MG PO; +DUONEB 3 MG/3 ML3 M1 NEB; +ENOXAPARIN40 MG/0.2 SC; +GOOD NEIGHBOR150 MG PO; +NORVASC2.5 MG PO; +PROTONIX40 M1 IV; +SOLU-MEDRO40 MG/1 ML IV; +TAMIFLU 75MG CA75 MG PO; +TESSALON PERLE100 MG PO; +Vitamin D PO
[2022-12-12] MEDS ORDERED: AMOX-CLAV 875-1 EACH PO (13:37)
== END 2022-12-12 13:44 | disposition home or self-care (01) ==
LOC: ED 12:44
DX: S61.452A Open bite of left hand, initial encounter (principal); S61.451A Open bite of right hand, initial encounter; L03.114 Cellulitis of left upper limb; L03.113 Cellulitis of right upper limb; I10 Essential (primary) hypertension; Z90.49 Acquired absence of other specified parts of digestive tract; Z98.890 Other specified postprocedural states; F17.200 Nicotine dependence, unspecified, uncomplicated; W55.01XA Bitten by cat, initial encounter; Y93.89 Activity, other specified; Y92.89 Other specified places as the place of occurrence of the external cause; Y99.8 Other external cause status

== ENCOUNTER 2024-06-30 13:04 | Emergency (ER) | payer MEDICARE ==
[~2024-06-30] VITALS: Wt 91.2 kg
[~2024-06-30 13:04] MED LIST changes: +AMOX-CLAV 875-1 EACH PO
[2024-06-30] MEDS ORDERED: OMEPRAZOLE40 MG PO (13:21)
[2024-06-30] MEDS ORDERED: PENICILLIN VK500 MG PO (13:29)
[2024-06-30] MEDS ORDERED: BENZOCAINE 20% 11.9 GM GEL T STA (13:29)
[2024-06-30] MEDS ORDERED: Lidocaine Hydrochloride 15 ML UDC PO STA (13:29)
[2024-06-30] MEDS ORDERED: traMADol Hydrochloride 50 MG TAB PO ONE (13:30)
== END 2024-06-30 13:48 | disposition home or self-care (01) ==
LOC: ED 13:04
DX: K04.7 Periapical abscess without sinus (principal); F17.200 Nicotine dependence, unspecified, uncomplicated; Z79.899 Other long term (current) drug therapy; Z90.49 Acquired absence of other specified parts of digestive tract

== ENCOUNTER 2024-08-22 04:44 | Emergency (ER) | payer MEDICARE, MEDICAID ==
[~2024-08-22] VITALS: Ht 172.7 cm; Wt 97.5 kg
[~2024-08-22 04:44] MED LIST changes: +OMEPRAZOLE40 MG PO; +PENICILLIN VK500 MG PO
[2024-08-22] MEDS ORDERED: Ondansetron Hydrochloride 4 MG/2 ML VIAL IV ONE (04:50)
[2024-08-22] MEDS ORDERED: Pantoprazole Sodium 40 MG VIAL IV ONE (04:50)
[2024-08-22] MEDS ORDERED: Lidocaine Hydrochloride 15 ML UDC PO STA (05:31)
[2024-08-22] MEDS ORDERED: Dicyclomine Hydrochloride 20 MG/10 ML OSYR PO STA (05:31)
[2024-08-22] MEDS ORDERED: MG-AL HYDROXIDE/SIMETICONE 30 ML UDC PO STA (05:31)
[2024-08-22] MEDS ORDERED: OMEPRAZOLE40 MG PO (06:00)
== END 2024-08-22 06:15 | disposition home or self-care (01) ==
LOC: ED 04:44
DX: K21.9 Gastro-esophageal reflux disease without esophagitis (principal); I10 Essential (primary) hypertension; F17.200 Nicotine dependence, unspecified, uncomplicated; Z79.899 Other long term (current) drug therapy; Z90.49 Acquired absence of other specified parts of digestive tract; Z98.890 Other specified postprocedural states